=== PATIENT | male | born 1955 | race Caucasian/White ===

== ENCOUNTER → 2017-02-28 | Outpatient (CLI) | payer OTHER ==
--- NOTE | 2017-03-01 07:53 | MR ---
EXAMINATION TYPE: MR lumbar spine wo con DATE OF EXAM: 02/28/2017 COMPARISON: Plain film 05/20/2016 HISTORY: Low Back Pain x2 years mostly on Right side TECHNIQUE: Multiplanar, multisequence images of the lumbar spine were acquired. L1-L2: Normal disc appearance without desiccation. No herniation, protrusion or disc bulging. No ca nal stenosis is present. Foramina are patent bilaterally. L2-L3: Small posterior disc bulge causes slight anterior mass effect on the thecal sac. No significan t central stenosis or foraminal encroachment. L3-L4: Small posterior disc bulge causes slight anterior mass effect on the thecal sac. No significan t central stenosis or foraminal encroachment. Mild facet arthropathy change noted. L4-L5: Broad-based posterior disc bulge causes mild anterior mass effect on the thecal sac. Facet art hropathy with hypertrophy of the ligamentum flavum encroaches upon the lateral recesses. No significa nt central stenosis or foraminal encroachment. L5-S1: There is facet arthropathy change. No significant central stenosis. Small posterior disc bulge may contact the anterior thecal sac. No significant foraminal encroachment. Lumbar segments are intact. No paraspinal masses are identified. Conus medullaris has a normal appe arance. There is a mild spinal curvature. Red marrow reconversion suspected at T12, L1, L2, L3 and L4 . There is multilevel spondylosis. Endplate discogenic marrow signal changes noted. Loss of disc heig ht and signal present greatest at L2-3. Possible parapelvic cysts within the kidney. IMPRESSION: Degenerative disc disease and facet arthropathy. Correlate for possible anemia, there is suggestion o f red marrow reconversion as described.
== END ==
LOC: RADMRIMAIN 14:34
PROVIDERS: ATTEND Orthopaedic Surgery Orthopaedic Surgery of the Spine
DX: M51.36 Other intervertebral disc degeneration, lumbar region (principal); M46.86 Other specified inflammatory spondylopathies, lumbar region
CPT/HCPCS: 72148

== ENCOUNTER → 2017-03-15 | Outpatient (CLI) | payer OTHER ==
--- NOTE | 2017-03-15 23:56 | MR ---
EXAMINATION TYPE: MR pelvis wo/w con DATE OF EXAM: 03/15/2017 COMPARISON: NONE HISTORY: Rt hip/thigh pain, weakness CONTRAST: Standard multiplanar, multisequence MRI departmental protocol utilizing 20 mL intravenous MultiHance gadolinium contrast. FINDINGS: On the T1 images there is abnormal decreased signal in the subchondral articular region of the right femoral head. There is abnormal patchy decreased T1 signal in the large area of the right f emoral head and intertrochanteric right femur and proximal shaft of the right femur. This area shows abnormal increased T2 signal. There is abnormal decreased signal in the posterior right acetabulum on the T1 images. T2 and STIR images show patchy increased signal in the large area of the right acetab ulum. There is abnormal increased right hip joint fluid consistent with effusion. There is soft tissue pathologic enhancement around a large area of the hip joint and intertrochanteri c right femur. There is no evidence of a mass within the pelvis. I see no fracture line. There is flu id level within the posterior urinary bladder that could relate to the contrast excretion. IMPRESSION: Extensive abnormal signal seen in the proximal right femur as well as the adjacent acetabulum. Hip pam int effusion. There is abnormal decreased signal in the femoral head subchondral region consistent wi th chronic avascular necrosis. There is significant pathologic soft tissue enhancement around the rig ht hip joint. I think most likely this relates to septic arthritis and synovitis. No fracture seen. O steomyelitis in the acetabulum and proximal femur should be considered. There is a mottled signal pattern in the iliac bones that could relate to red marrow replacement.
== END | disposition home or self-care (01) ==
LOC: RADMRIMAIN 14:50
PROVIDERS: ATTEND Orthopaedic Surgery Orthopaedic Surgery of the Spine
DX: M25.451 Effusion, right hip (principal)
CPT/HCPCS: 72197; A9577

== ENCOUNTER → 2020-06-18 | Outpatient (CLI) | payer MEDICARE, OTHER ==
--- NOTE | 2020-06-18 16:04 | FL ---
EXAMINATION TYPE: FL barium swallow DATE OF EXAM: 06/18/2020 COMPARISON: None HISTORY: Dysphasia TECHNIQUE: A double air contrast esophagram study is performed. FINDINGS: Esophagus dilates to normal caliber has normal contour to the gastroesophageal junction. Gastroesopha geal junction opens to normal caliber. There is complete stripping the esophageal bolus the horizontal drinking position. Some minimal terti karley contractions were observed which can be compatible with presbyesophagus. IMPRESSIONS: 1. Mild presbyesophagus.
== END | disposition home or self-care (01) ==
LOC: RADUSWWP 08:37
PROVIDERS: ATTEND Otolaryngology
DX: K22.8 Other specified diseases of esophagus (principal); R13.10 Dysphagia, unspecified
CPT/HCPCS: 74220

== ENCOUNTER → 2021-01-04 | Outpatient (CLI) | payer MEDICARE, OTHER ==
[2021-01-04 09:19] LABS: African American GFR (CKD) >90 (>60 ml/min/1.73 sqM); Blood Urea Nitrogen 11 mg/dL (9-20); Non-African American GFR(CKD) >90 (>60 ml/min/1.73 sqM)
--- NOTE | 2021-01-04 13:20 | CT ---
EXAMINATION TYPE: CT soft tissue neck w con DATE OF EXAM: 01/04/2021 10:03 AM COMPARISON: HISTORY: sore throat, difficulty swallowing CT DLP: 622 mGycm Automated exposure control for dose reduction was used. CONTRAST: CT scan of the neck is performed following with IV Contrast, patient injected with 100 mL of Isovue 3 00. Axial images are obtained, coronal and sagittal reformatted images are reviewed. FINDINGS: Airway: No gross abnormality seen. Left palatine tonsil shows a focal calcification likely due to rem ote infection. Parotid/submandibular glands: No gross abnormality seen. Carotid/Vascular Structures: Atheromatous changes are present at the carotid bifurcations and along t he transverse aorta, 3 super aortic branch vessels are present, left and right common carotid, subcla vian, vertebral arteries are patent, left vertebral artery is dominant Osseous Structures: Degenerative disc changes are present in the visualized spine, there is multileve l foraminal encroachment, facet arthropathy change Other: Shotty nodes are present along the cervical chains, thyroid gland shows homogenous density IMPRESSION: Degenerative disc disease, evidence of remote infection left palatine tonsil as describe mandeep
== END | disposition home or self-care (01) ==
LOC: RADCTMAIN 08:42
PROVIDERS: ATTEND Otolaryngology
DX: R13.10 Dysphagia, unspecified (principal); J02.9 Acute pharyngitis, unspecified
CPT/HCPCS: 82565; 84520; 70491; 36415; Q9967

== ENCOUNTER 2023-02-14 19:31 | Emergency (ER) | payer MEDICARE, OTHER ==
--- NOTE | 2023-02-14 20:03 | ED ---
Fall HPI - General Stated Complaint: fall Time Seen by Provider: 02/14/23 20:02 Source: RN notes reviewed, old records reviewed Mode of arrival: EMS Limitations: altered mental status (Patient appears intoxicated) - History of Present Illness Initial Comments: This is a 67-year-old male to the emergency department for evaluation of a fall. This 59-year-old male had a mechanical fall downstairs. Patient has no other complaints denies headache chest pain shortness of breath or abdominal pain. Patient does complain of severe right hip pain right leg pain and inability to move right leg. notices there is significant swelling to right lower extremity. Patient states he just tripped and fell on the stairs was unable to get up and was down at for about 3 hours. came home from work and found this patient on the ground called EMS and patient presents to the emergency department. 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 Fall Witnessed: yes, by family Place Fall Occurred: home Loss of Consciousness: none Prolonged Down Time?: no Symptoms Prior to Fall: none Location: buttocks Location - Extremities: Left: Thigh Severity: severe Severity scale (1-10): 10 Quality: sharp Context: tripped/slipped (Syncopal event) Associated Symptoms: denies - Related Data Home Medications Medication Instructions Recorded Confirmed Simvastatin [Zocor] 10 mg PO HS 05/20/16 05/20/16 Previous Rx's Medication Instructions Recorded Ibuprofen [Motrin] 600 mg PO Q6HR PRN #12 tab 05/20/16 methylPREDNISolone Dose Pack 24 mg PO DAILY #1 tab 05/20/16 [Medrol Dose Pack] traMADol HCl [Ultram] 50 mg PO Q6H PRN #20 tab 05/20/16 Allergies Allergy/AdvReac Type Severity Reaction Status Date / Time No Known Allergies Allergy Verified 05/20/16 07:23 Review of Systems ROS Statement: Those systems with pertinent positive or pertinent negative responses have been documented in the HPI. ROS Other: All systems not noted in ROS Statement are negative. Past Medical History Past Medical History: Cancer, Hyperlipidemia Additional Past Medical History / Comment(s): colon cancer History of Any Multi-Drug Resistant Organisms: None Reported Additional Past Surgical History / Comment(s): colostomy Past Psychological History: No Psychological Hx Reported Past Alcohol Use History: None Reported Past Drug Use History: None Reported General Exam - General Exam Comments Initial Comments: GCS of 15 Airways patent Trachea is midline Breath sounds equal bilaterally Right leg deformity and swelling General appearance: alert, in no apparent distress, appears intoxicated Head exam: Present: atraumatic, normocephalic, normal inspection Eye exam: Present: normal appearance, PERRL, EOMI. Absent: scleral icterus, conjunctival injection, periorbital swelling ENT exam: Present: normal exam, mucous membranes moist Neck exam: Present: normal inspection. Absent: tenderness, meningismus, lymphadenopathy Respiratory exam: Present: normal lung sounds bilaterally. Absent: respiratory distress, wheezes, rales, rhonchi, stridor Cardiovascular Exam: Present: regular rate, normal rhythm, normal heart sounds. Absent: systolic murmur, diastolic murmur, rubs, gallop, clicks GI/Abdominal exam: Present: soft, normal bowel sounds. Absent: distended, tenderness, guarding, rebound, rigid Extremities exam: Present: normal inspection, full ROM, normal capillary refill, calf tenderness, other (Deformity and swelling of right lower extremity). Absent: tenderness, pedal edema, joint swelling Back exam: Present: normal inspection Neurological exam: Present: alert, oriented X3, CN II-XII intact Psychiatric exam: Present: normal affect, normal mood Skin exam: Present: warm, dry, intact, normal color. Absent: rash Course Vital Signs 02/14/23 02/14/23 02/14/23 19:32 22:11 23:20 Temperature 97.4 F L Pulse Rate 70 72 82 Respiratory 18 20 18 Rate Blood Pressure 144/77 105/71 115/65 O2 Sat by Pulse 100 100 95 Oximetry 02/15/23 00:09 Temperature Pulse Rate Respiratory 20 Rate Blood Pressure O2 Sat by Pulse Oximetry - Reevaluation(s) Reevaluation #1: 02/14/23 23:05 Medical record is reviewed 02/14/23 23:05 Patient was initially frustrated with time to be seen, was reassured and the rest of the visit went well Reevaluation #2: 02/14/23 23:05 Patient's pain is improved, controlled Reevaluation #3: 02/14/23 23:05 Patient informed results and questions have been answered Reevaluation #4: 02/14/23 23:28 Was pt. sent in by a medical professional or institution? @ -no Did you speak to anyone other than the patient for history? @ -yes patient's is at bedside who states she found patient on the ground at the bottom of the flight of stairs when she came home from work estimated time on the ground was greater than 3 hours Did you review nursing and triage notes? @ -agree Were old charts reviewed? @ -No prior evaluations at this hospital Differential Diagnosis? @ -prior, syncope EKG interpreted by me (3pts min.)? @ -yes X-rays interpreted by me (1pt min.)? @ -no CT interpreted by me (1pt min.)? @ -no U/S interpreted by me (1pt. min.)? @ -no What testing was considered but not performed? (CT, X-rays, U/S, labs)? Why? @ -no What meds were considered but not given? Why? @ -no Did you discuss the management of the patient with other professionals? @ -I did discuss management of this patient with both orthopedic and from a surgeon at [facility] will accept patient in transfer for definitive care Did you reconcile home meds? @ -no Was smoking cessation discussed for >3mins.? @ -no Was critical care preformed (if so, how long)? @ -no Were there social determinants of health that impacted care today? How? (Homelessness, low income, unemployed, alcoholism, drug addiction, transportation, low edu. Level, literacy, decrease access to med. care, residential, re hab)? @ -no Was there de-escalation of care discussed even if they declined? (Discuss DNR or withdrawal of care, Hospice)? @ -no What co-morbidities impacted this encounter? (DM, HTN, Smoking, COPD, CAD, Cancer, CVA, Hep., AIDS, mental health diagnosis, sleep apnea, morbid obesity)? @ -none Was patient admitted / discharged? @ -This is a 67-year-old male to the emergency department for evaluation of a syncopal event which precipitated a fall down a flight of stairs. No organic cause of syncope is found, patient is positively intoxicated likely dehydration and vasovagal event prior to syncopal event, patient does have right hip pain secondary to right hip prosthesis fracture. Patient will be transferred for trauma surgery, orthopedic surgery Undiagnosed new problem with uncertain prognosis? @ -no Drug Therapy requiring intensive monitoring for toxicity (Heparin, Nitro, Insulin, Cardizem)? @ -no Were any procedures done? @ -no Diagnosis/symptom? @ -Syncope, fall, right hip prosthesis fracture, alcohol intoxication Acute, or Chronic, or Acute on Chronic? @ -Acute Uncomplicated (without systemic symptoms) or Complicated (systemic symptoms)? @ -complicated Side effects of treatment? @ -no Exacerbation, Progression, or Severe Exacerbation] @ -no Poses a threat to life or bodily function? @ -yes, syncope can always be a threat to life and hemodynamic instability Reevaluation #5: 02/14/23 23:06 Differential Syncope: Valvular disease, hypertrophic cardiomyopathy, pulmonary embolism, tamponade, tachycardia, bradycardia, AK, hypovolemia, hemorrhage, dissection, anemia, intracranial hemorrhage, seizure, hypoglycemia, carbon monoxide poisoning, this is not meant to be an all-inclusive list. - Consultations Consultation #1: Spoke with [facility] were accepting this patient has a transfer patient Medical Decision Making - Medical Decision Making 67 female to the emergency department for evaluation of fall this fall occurred after syncopal event on the flight of stairs with around 3 hours of down time. Patient complained of right leg right hip pain with history of right hip replacement, patient does have prosthesis fracture of the right hip and will be transferred to [facility] for definitive care - Lab Data Result diagrams: 02/14/23 20:25 02/14/23 20:25 Lab Results 02/14/23 02/14/23 02/14/23 Range/Units 20:25 20:25 20:25 WBC 7.8 (3.8-10.6) k/uL RBC 2.97 L (4.30-5.90) m/uL Hgb 9.7 L (13.0-17.5) gm/dL Hct 29.0 L (39.0-53.0) % MCV 97.5 (80.0-100.0) fL MCH 32.5 (25.0-35.0) pg MCHC 33.3 (31.0-37.0) g/dL RDW 12.8 (11.5-15.5) % Plt Count 274 (150-450) k/uL MPV 7.6 Neutrophils % 84 % Lymphocytes % 9 % Monocytes % 5 % Eosinophils % 1 % Basophils % 0 % Neutrophils # 6.6 (1.3-7.7) k/uL Lymphocytes # 0.7 L (1.0-4.8) k/uL Monocytes # 0.4 (0-1.0) k/uL Eosinophils # 0.1 (0-0.7) k/uL Basophils # 0.0 (0-0.2) k/uL PT 9.9 (9.0-12.0) sec INR 0.9 (<1.2) APTT 24.0 (22.0-30.0) sec Sodium 127 L (137-145) mmol/L Potassium 4.2 (3.5-5.1) mmol/L Chloride 98 (98-107) mmol/L Carbon Dioxide 13 L (22-30) mmol/L Anion Gap 16 mmol/L BUN 15 (9-20) mg/dL Creatinine 1.13 (0.66-1.25) mg/dL Est GFR (CKD-EPI)AfAm 77 (>60 ml/min/1.73 sqM) Est GFR (CKD-EPI)NonAf 67 (>60 ml/min/1.73 sqM) Glucose 88 (74-99) mg/dL Lactic Ac Sepsis Rflx Plasma Lactic Acid Rufino (0.7-2.0) mmol/L Calcium 8.4 (8.4-10.2) mg/dL Phosphorus 3.9 (2.5-4.5) mg/dL Magnesium 1.6 (1.6-2.3) mg/dL Total Bilirubin 0.5 (0.2-1.3) mg/dL AST 46 (17-59) U/L ALT 30 (4-49) U/L Alkaline Phosphatase 82 (38-126) U/L CK-MB (CK-2) (0.0-2.4) ng/mL Troponin I (0.000-0.034) ng/mL NT-Pro-B Natriuret Pep pg/mL Total Protein 6.8 (6.3-8.2) g/dL Albumin 4.2 (3.5-5.0) g/dL Serum Alcohol 149 mg/dL 02/14/23 02/14/23 02/14/23 Range/Units 20:25 20:25 20:25 WBC (3.8-10.6) k/uL RBC (4.30-5.90) m/uL Hgb (13.0-17.5) gm/dL Hct (39.0-53.0) % MCV (80.0-100.0) fL MCH (25.0-35.0) pg MCHC (31.0-37.0) g/dL RDW (11.5-15.5) % Plt Count (150-450) k/uL MPV Neutrophils % % Lymphocytes % % Monocytes % % Eosinophils % % Basophils % % Neutrophils # (1.3-7.7) k/uL Lymphocytes # (1.0-4.8) k/uL Monocytes # (0-1.0) k/uL Eosinophils # (0-0.7) k/uL Basophils # (0-0.2) k/uL PT (9.0-12.0) sec INR (<1.2) APTT (22.0-30.0) sec Sodium (137-145) mmol/L Potassium (3.5-5.1) mmol/L Chloride (98-107) mmol/L Carbon Dioxide (22-30) mmol/L Anion Gap mmol/L BUN (9-20) mg/dL Creatinine (0.66-1.25) mg/dL Est GFR (CKD-EPI)AfAm (>60 ml/min/1.73 sqM) Est GFR (CKD-EPI)NonAf (>60 ml/min/1.73 sqM) Glucose (74-99) mg/dL Lactic Ac Sepsis Rflx Plasma Lactic Acid Rufino 3.6 H* (0.7-2.0) mmol/L Calcium (8.4-10.2) mg/dL Phosphorus (2.5-4.5) mg/dL Magnesium (1.6-2.3) mg/dL Total Bilirubin (0.2-1.3) mg/dL AST (17-59) U/L ALT (4-49) U/L Alkaline Phosphatase (38-126) U/L CK-MB (CK-2) (0.0-2.4) ng/mL Troponin I <0.012 (0.000-0.034) ng/mL NT-Pro-B Natriuret Pep 433 pg/mL Total Protein (6.3-8.2) g/dL Albumin (3.5-5.0) g/dL Serum Alcohol mg/dL 02/14/23 02/14/23 Range/Units 20:25 21:12 WBC (3.8-10.6) k/uL RBC (4.30-5.90) m/uL Hgb (13.0-17.5) gm/dL Hct (39.0-53.0) % MCV (80.0-100.0) fL MCH (25.0-35.0) pg MCHC (31.0-37.0) g/dL RDW (11.5-15.5) % Plt Count (150-450) k/uL MPV Neutrophils % % Lymphocytes % % Monocytes % % Eosinophils % % Basophils % % Neutrophils # (1.3-7.7) k/uL Lymphocytes # (1.0-4.8) k/uL Monocytes # (0-1.0) k/uL Eosinophils # (0-0.7) k/uL Basophils # (0-0.2) k/uL PT (9.0-12.0) sec INR (<1.2) APTT (22.0-30.0) sec Sodium (137-145) mmol/L Potassium (3.5-5.1) mmol/L Chloride (98-107) mmol/L Carbon Dioxide (22-30) mmol/L Anion Gap mmol/L BUN (9-20) mg/dL Creatinine (0.66-1.25) mg/dL Est GFR (CKD-EPI)AfAm (>60 ml/min/1.73 sqM) Est GFR (CKD-EPI)NonAf (>60 ml/min/1.73 sqM) Glucose (74-99) mg/dL Lactic Ac Sepsis Rflx Y Plasma Lactic Acid Rufino (0.7-2.0) mmol/L Calcium (8.4-10.2) mg/dL Phosphorus (2.5-4.5) mg/dL Magnesium (1.6-2.3) mg/dL Total Bilirubin (0.2-1.3) mg/dL AST (17-59) U/L ALT (4-49) U/L Alkaline Phosphatase (38-126) U/L CK-MB (CK-2) 21.5 H (0.0-2.4) ng/mL Troponin I (0.000-0.034) ng/mL NT-Pro-B Natriuret Pep pg/mL Total Protein (6.3-8.2) g/dL Albumin (3.5-5.0) g/dL Serum Alcohol mg/dL - EKG Data -: EKG Interpreted by Me (EKG sinus 67 FL 179 FL 110 QTc 448) - Radiology Data Radiology results: report reviewed (CT brain C-spine negative for acute disease CT chest 7 pelvis negative for acute disease CT right hip does show right femur fracture, blow prosthesis), image reviewed Critical Care Time Critical Care Time: Yes Total Critical Care Time: 31 Disposition Clinical Impression: Fall, Syncope, Alcohol intoxication, Closed right hip fracture Disposition: OTHER INSTITUTION NOT DEFINED Condition: Fair Is patient prescribed a controlled substance at d/c from ED?: No Referrals: None,Stated [REFERRING] - 1-2 days Time of Disposition: 23:15 - Out of Hospital Transfer - Req. Specs Out of Hospital Transfer - Requested Specifics: Other Emergency Center ([facility])
[2023-02-14] MEDS ORDERED: ONDANSETRON 4 MG/2 ML VIAL IVP STA (20:17)
[2023-02-14] MEDS ORDERED: SODIUM CHLORIDE 0.9% 1,000 ML IV STA ×2 (20:17→21:47)
[2023-02-14] MEDS ORDERED: MORPHINE SULFATE 4 MG/ML SYRINGE IV STA (20:17)
[2023-02-14 20:25] VITALS: TEMP 97.4
[2023-02-14 20:58] LABS: Basophils % (A) 0 %; Eosinophils # (A) 0.1 k/uL (0-0.7); Eosinophils % (A) 1 %; HGB 9.7 gm/dL (13.0-17.5); Lymphocytes # (A) 0.7 k/uL (1.0-4.8); Lymphocytes % (A) 9 %; MCH 32.5 pg (25.0-35.0); MCHC 33.3 g/dL (31.0-37.0); MCV 97.5 fL (80.0-100.0); Mean Platelet Volume 7.6; Monocytes # (A) 0.4 k/uL (0-1.0); Monocytes % (A) 5 %; Neutrophils # (A) 6.6 k/uL (1.3-7.7); Neutrophils % (A) 84 %; Platelet Count 274 k/uL (150-450); RBC 2.97 m/uL (4.30-5.90); RDW 12.8 % (11.5-15.5); WBC 7.8 k/uL (3.8-10.6)
[2023-02-14 21:02] LABS: Albumin 4.2 g/dL (3.5-5.0); Calcium 8.4 mg/dL (8.4-10.2); Magnesium 1.6 mg/dL (1.6-2.3); Phosphorus 3.9 mg/dL (2.5-4.5); Potassium 4.2 mmol/L (3.5-5.1); Total Bilirubin 0.5 mg/dL (0.2-1.3); Total Protein 6.8 g/dL (6.3-8.2)
[2023-02-14 21:10] LABS: INR 0.9 (<1.2); Prothrombin Time 9.9 sec (9.0-12.0)
--- NOTE | 2023-02-14 21:46 | CT ---
EXAMINATION TYPE: CT brain armidaine wo con DATE OF EXAM: 02/14/2023 COMPARISON: 01/04/2021 HISTORY: traumatic fall CT DLP: Combined DLP 4449.5 mGycm, Automated exposure control for dose reduction was used. CONTRAST: Patient injected with 0 mL of Isovue 300. CT of the brain is performed utilizing 3 mm thick sections through the posterior fossa and 3 mm thick sections through the remaining calvarium. Study is performed within 24 hours of arrival to the hospital. No abnormal hyperdensity is present to suggest an acute intracranial hemorrhage. No mass lesion is evident. No acute infarcts are evident. Ventricles and sulci are appropriate for the patient age. Paranasal sinuses and mastoid air cells within the [id number] are clear. IMPRESSIONS: 1. No acute intracranial process. Follow-up MRI can be performed as clinically indicated. CT cervical spine. COMPARISON: None CT of the cervical spine is performed in the axial plane at 2 mm thick sections. Reconstructed image s in the coronal, and sagittal plane are reviewed on the computer. No acute fractures are evident. There is slight kyphosis centered at C4. Diffuse loss of disc height is present throughout the cervical spine. Some relative preservation imme diacy to 3. Vertebral body heights are preserved. No spinal canal stenosis is evident. Uncovertebral joint hypertrophy is present C2-C3 with mild right and moderate left foraminal stenosis . Left foraminal stenosis from uncovertebral joint hypertrophy and facet hypertrophy is present at C3 -4. Foraminal narrowing is present on the left C4-5 from uncovertebral joint hypertrophy. Bilateral s evere foraminal stenosis present C5-6 and C6-7 from uncovertebral joint hypertrophy. IMPRESSIONS: 1. No acute osseous abnormality cervical spine. 2. Cervical kyphosis which can be related to patient positioning or muscle spasm. 3. Degenerative disc changes and uncovertebral joint hypertrophy. Foraminal stenosis greater on the l eft as discussed above.
--- NOTE | 2023-02-14 22:06 | CT ---
EXAMINATION TYPE: CT ChestAbdPelvis w con DATE OF EXAM: 02/14/2023 INDICATION: traumatic fall COMPARISON: None CT DLP: Combined DLP 4449.5 mGycm CONTRAST: Performed without Oral Contrast and with IV Contrast, patient injected with 100 cc mL of Isovue 300. TECHNIQUE: Axial images at 5 mm thick sections. Reconstructed images in the coronal plane. Delayed images through the kidneys. FINDINGS: CT CHEST: Portion of the thyroid visualized is normal. No suspicious lung nodules or focal infiltrates are present. No enlarged mediastinal or hilar adenopathy is evident. The ascending aorta diameter at the level of the main pulmonary artery is 3.5 cm. The main pulmonary artery diameter at the bifurcation is 2.[address] ABDOMEN: Liver: Normal Spleen: Normal Pancreas: Normal Adrenal glands: The adrenal glands are normal. Gallbladder: Normal Kidneys: No masses are evident. Prominent bilateral hydronephrosis is evident. Obstructing etiology i s not identified. Hydroureter extends to the level vesical junctions. No renal or ureteral stones yemi ntified. No calcification in urinary bladder is identified. Aorta: Vascular calcification is within the aorta. Inferior vena cava: Normal. CT PELVIS: There is left lower quadrant ostomy. No suspicious obstruction is identified. Rectal stump appears un remarkable. There is limitation due to beam hardening artifact right hip prosthesis. Loops of bowel w ithin the abdomen and pelvis are normal. The study is without oral contrast. Appendix: Not identified. No dilated tubular structure or inflammatory changes evident. Urinary bladder: Distended Genitourinary structures: Prostate appears normal. There may be some prominence of the urethra within the prostate. Correlate for recent TURP. Osseous structures: No suspicious lytic or sclerotic lesions. There is a right hip prosthesis. There is a transverse fracture at the level of the mid prosthesis shaft level. IMPRESSIONS: 1. Fracture right proximal femur at the mid level of the shaft of the prosthesis. 2. Prominent bilateral hydronephrosis and hydroureter. There is some urinary bladder distention at th e time of the exam. 3. Postsurgical changes within the bowel with left lower quadrant ostomy site.
[2023-02-14] MEDS ORDERED: HYDROmorphone 1 MG/ML 1 ML SYRINGE IVP STA (22:24)
--- NOTE | 2023-02-14 22:25 | CT ---
EXAMINATION TYPE: CT hip RT wo con DATE OF EXAM: 02/14/2023 COMPARISON: HISTORY: traumatic fall to right hip CT DLP: Combined DLP 4449.5 mGycm Automated exposure control for dose reduction was used. Contrast: None Technique: Axial images through millimeter thick sections. Reconstructed images in the coronal and sa gittal plane. 3-D reconstructed images performed on a separate computer forwarding system markup clerk during. FINDINGS: There is a transverse fracture through the proximal diaphysis right femur. This is at approximately t he level of the mid shaft of the femoral prosthesis which appears intact. Some diastases of the fract ure fragments is evident. Femoral prosthesis articulates with the acetabular component. No additional fractures are within the field of view. IMPRESSION: 1. TRANSVERSE FRACTURE PROXIMAL DIAPHYSEAL RIGHT FEMUR BELOW THE LESSER TROCHANTER AT APPROXIMATELY T HE MID SHAFT OF THE FEMORAL PROSTHESIS. THE FEMORAL PROSTHESIS APPEARS INTACT.
[2023-02-14 23:22] VITALS: BP 115/65; PULSE 82
[2023-02-15 00:10] VITALS: RESP 20
== END 2023-02-15 00:10 | disposition other institution (70) ==
LOC: EC 19:31
DX: S72.91XA Unspecified fracture of right femur, initial encounter for closed fracture (principal); R55 Syncope and collapse; F10.129 Alcohol abuse with intoxication, unspecified; E78.5 Hyperlipidemia, unspecified; Z79.899 Other long term (current) drug therapy; W10.9XXA Fall (on) (from) unspecified stairs and steps, initial encounter
CPT/HCPCS: 36415; 93005; 83880; 80053; 82553; 83605; 83735; 84100; 84484; 85025; 85610; 85730; 72125; 70450; 71260; 74177; 73700; 99291; 96374; 96375 ×2; 96361 ×3; 51702; G0480; J2270; J2405; J1170; Q9967; 80320

== ENCOUNTER 2023-04-08 07:44 | Emergency (ER) | payer MEDICARE, OTHER ==
[2023-04-08 07:58] VITALS: TEMP 98.5
--- NOTE | 2023-04-08 08:24 | ED ---
Male Urogenital HPI - General Chief complaint: Urogenital Stated complaint: poss uti Time Seen by Provider: 04/08/23 08:00 Source: patient, RN notes reviewed, old records reviewed Mode of arrival: ambulatory Limitations: no limitations - History of Present Illness Initial comments: 68-year-old well-appearing male presents to the emergency room with complaints of dysuria and frequency since yesterday afternoon. Patient states he has had similar episodes like this in the past due to BPH. Last urinary catheter for retention was 3 weeks ago when he was at [facility]. Patient had hip surgery around of this year and has had intermittent issues since. Has not seen a urologist yet. Denies any fevers, or nausea vomiting. Does have a histo ry of colon cancer with colostomy, hypertension and hyperlipidemia. MD Complaint: dysuria -: days(s) (1) Radiation: none Consistency: constant Reports: denies other symptoms - Related Data Home Medications Medication Instructions Recorded Confirmed Simvastatin [Zocor] 10 mg PO HS 05/20/16 05/20/16 Previous Rx's Medication Instructions Recorded Ibuprofen [Motrin] 600 mg PO Q6HR PRN #12 tab 05/20/16 methylPREDNISolone Dose Pack 24 mg PO DAILY #1 tab 05/20/16 [Medrol Dose Pack] traMADol HCl [Ultram] 50 mg PO Q6H PRN #20 tab 05/20/16 Sulfamethox-Tmp 800-160Mg [Bactrim 1 each PO Q12HR 5 Days #10 tab 04/08/23 Ds] Allergies Allergy/AdvReac Type Severity Reaction Status Date / Time No Known Allergies Allergy Verified 05/20/16 07:23 Review of Systems ROS Statement: Those systems with pertinent positive or pertinent negative responses have been documented in the HPI. ROS Other: All systems not noted in ROS Statement are negative. Past Medical History Past Medical History: Cancer, Hyperlipidemia, Osteoarthritis (OA) Additional Past Medical History / Comment(s): colon cancer History of Any Multi-Drug Resistant Organisms: None Reported Additional Past Surgical History / Comment(s): colostomy Past Psychological History: No Psychological Hx Reported Smoking Status: Never smoker Past Alcohol Use History: None Reported Past Drug Use History: None Reported General Exam Limitations: no limitations General appearance: alert, in no apparent distress Head exam: Present: atraumatic Eye exam: Present: normal appearance. Absent: scleral icterus, periorbital swelling Respiratory exam: Absent: respiratory distress, accessory muscle use Cardiovascular Exam: Present: regular rate Neurological exam: Present: alert, oriented X3 Psychiatric exam: Present: normal affect, normal mood Skin exam: Present: warm, dry, normal color. Absent: cyanosis, diaphoretic, petechiae, pallor Course Vital Signs 04/08/23 04/08/23 04/08/23 07:53 09:06 09:18 Temperature 98.5 F Pulse Rate 90 80 Respiratory 18 15 15 Rate Blood Pressure 124/89 140/77 O2 Sat by Pulse 100 Oximetry Medical Decision Making - Medical Decision Making Was pt. sent in by a medical professional or institution (, [facility], TYPING TEACHER, urgent care, hospital, or care home...) When possible be specific @ -No Did you speak to anyone other than the patient for history (EMS, parent, family, police, friend...)? What history was obtained from this source @ -No Did you review nursing and triage notes (agree or disagree)? Why? @ -I reviewed and agree with nursing and triage notes Were old charts reviewed (outside hosp., previous admission, EMS record, old EKG, old radiological studies, urgent care reports/EKG's, care home records)? Report findings @ -Previous ER visit and CT report Differential Diagnosis (chest pain, altered mental status, abdominal pain women, abdominal pain men, vaginal bleeding, weakness, fever, dyspnea, syncope, headache, dizziness, GI bleed, back pain, seizure, CVA, palpatations, mental health, musculoskeletal)? @ -Urinary retention, urinary tract infection EKG interpreted by me (3pts min.). @ -n/a X-rays interpreted by me (1pt min.). @ -None done CT interpreted by me (1pt min.). @ -None done U/S interpreted by me (1pt. min.). @ -None done What testing was considered but not performed or refused? (CT, X-rays, U/S, labs)? Why? @ -None What meds were considered but not given or refused? Why? @ -None Did you discuss the management of the patient with other professionals (professionals i.e. [facility] Blank, TYPING TEACHER, lab, RT, psych nurse, psychosocial rehabilitation counselor, water plumber, teacher, supply officer, residential case manager)? Give summary @ -No Was smoking cessation discussed for >3mins.? @ -No Was critical care preformed (if so, how long)? @ -No Were there social determinants of health that impacted care today? How? (Homelessness, low income, unemployed, alcoholism, drug addiction, transportation, low edu. Level, literacy, decrease access to med. care, shelter, rehab)? @ -No Was there de-escalation of care discussed even if they declined (Discuss DNR or withdrawal of care, Hospice)? DNR status @ -No What co-morbidities impacted this encounter? (DM, HTN, Smoking, COPD, CAD, Cancer, CVA, ARF, Chemo, Hep., AIDS, mental health diagnosis, sleep apnea, morbid obesity)? @ -History of colon cancer with colostomy, hypertension and hyperlipidemia. Was patient admitted / discharged? Hospital course, mention meds given and route, prescriptions, significant lab abnormalities, going to OR and other pertinent info. @ -Discharged 68-year-old well-appearing male presents to the emergency room with complaints of dysuria and frequency since yesterday afternoon. Patient states he has had similar episodes like this in the past due to BPH. Last urinary catheter for retention was 3 weeks ago when he was at [facility]. Patient had hip surgery around of this year and has had intermittent issues since. Has not seen a urologist yet. Denies any fevers, or nausea vomiting. Patient had a fall February 14 sustaining a right proximal femur fracture. Was at [facility] and had wbeer [address] report was reviewed from January showing fracture right proximal femur at the mid level of the shaft of the prosthesis. Prominent bilateral hydronephrosis with hydroureter. Some bladder distention time the exam. Postsurgical changes within the bowel left lower quadrant ostomy site. Bladder scan shows over 300 mL of urine postvoid residual. Weber catheter placed and UA shows cloudy urine with moderate blood, large leukocyte esterase, and greater than 182 white blood cells and rare bacteria. Denies any back pain or fevers. No nausea or vomiting. Patient reports history of urinary retention. He will be treated for UTI with bactrim. He was directed follow-up with urology. States wants to f/u with urology out of town. Patient discharged home with family. Case discussed with Dr. Calles. Undiagnosed new problem with uncertain prognosis? @ -No Drug Therapy requiring intensive monitoring for toxicity (Heparin, Nitro, In sulin, Cardizem)? @ -No Were any procedures done? @ -No Diagnosis/symptom? @ -Urinary retention, urinary tract infection Acute, or Chronic, or Acute on Chronic? @ -Acute Uncomplicated (without systemic symptoms) or Complicated (systemic symptoms)? @ -Uncomplicated Side effects of treatment? @ -No Exacerbation, Progression, or Severe Exacerbation? @ -No Poses a threat to life or bodily function? How? (Chest pain, [place], PR, pneumonia, PE, COPD, DKA, ARF, appy, cholecystitis, CVA, Diverticulitis, Homicidal, Suicidal, threat to staff... and all critical care pts) @ -No - Lab Data Lab Results 04/08/23 Range/Units 08:00 Urine Color Light Yellow Urine Appearance Cloudy (Clear) Urine pH 6.5 (5.0-8.0) Ur Specific [place] 1.014 (1.001-1.035) Urine Protein 2+ H (Negative) Urine Glucose (UA) Negative (Negative) Urine Ketones Negative (Negative) Urine Blood Moderate H (Negative) Urine Nitrite Negative (Negative) Urine Bilirubin Negative (Negative) Urine Urobilinogen <2.0 (<2.0) mg/dL Ur Leukocyte Esterase Large H (Negative) Urine RBC 19 H (0-5) /hpf Urine WBC >182 H (0-5) /hpf Urine Bacteria Rare H (None) /hpf Disposition Clinical Impression: Urinary retention, UTI (urinary tract infection) Disposition: HOME SELF-CARE Condition: Good Instructions (If sedation given, give patient instructions): Urinary Retention in Men (ED), Urinary Tract Infection in Men (ED) Additional Instructions: Take antibiotics as prescribed. Follow-up with urology this week. Return to the emergency room with any new or concerning symptoms including no drainage from catheter, fever, pain or persistent nausea vomiting. Prescriptions: Sulfamethox-Tmp 800-160Mg [Bactrim Ds] 1 each PO Q12HR 5 Days #10 tab Is patient prescribed a controlled substance at d/c from ED?: No Referrals: Samra Leo MD [Primary Care Provider] - 1-2 days Joseph Paul MD [STAFF PHYSICIAN] - 1-2 days Time of Disposition: 08:56
[2023-04-08 08:27] LABS: Appearance,Urine Cloudy (Clear); Bacteria,Urine Rare /hpf; Bilirubin,Urine Negative (Negative); Blood,Urine Moderate (Negative); Color,Urine Light Yellow; Glucose,Urine (UA) Negative (Negative); Ketones,Urine Negative (Negative); Leukocyte Esterase,Urine Large (Negative); Nitrite,Urine Negative (Negative); PH, Urine 6.5 (5.0-8.0); Protein,Urine 2+ (Negative); RBC,Urine 19 /hpf (0-5); Specific Gravity,Urine 1.014 (1.001-1.035); Urobilinogen,Urine <2.0 mg/dL (<2.0); WBC,Urine >182 /hpf (0-5)
[2023-04-08] MEDS ORDERED: SULFAMETHOX-TMP 800-160MG 1 EACH TAB PO STA (08:57)
[2023-04-08 09:08] VITALS: RESP 15
[2023-04-08 09:19] VITALS: BP 140/77; PULSE 80
== END 2023-04-08 09:20 | disposition home or self-care (01) ==
LOC: EC 07:44
DX: N39.0 Urinary tract infection, site not specified (principal); E78.5 Hyperlipidemia, unspecified; Z79.899 Other long term (current) drug therapy
CPT/HCPCS: 51798; 81001; 87086; 99283